=== PATIENT | female | born 1990 | race Two or more races ===

== ENCOUNTER → 2019-09-22 | Outpatient (CLI) | payer OTHER | END | disposition home or self-care (01) | LOC: PRENATAL 12:05 | DX: O35.3XX1 Maternal care for (suspected) damage to fetus from viral disease in mother, fetus 1 (principal); O43.91 Unspecified placental disorder, first trimester ==

== ENCOUNTER → 2019-11-19 | Outpatient (CLI) | payer OTHER | END | disposition home or self-care (01) | LOC: PRENATAL 13:00 | DX: O26.843 Uterine size-date discrepancy, third trimester (principal); O43.93 Unspecified placental disorder, third trimester; Z36.89 Encounter for other specified antenatal screening ==

== ENCOUNTER 2020-01-27 13:30 | Inpatient (IN) | payer OTHER ==
[~2020-01-27] VITALS: Ht 170.2 cm; Wt 82.1 kg
[2020-02-10] MEDS ORDERED: PRENATAL 19 TA1 EACH PO (16:09)
== END 2020-02-13 12:34 | disposition home or self-care (01) | DRG 807 ==
LOC: LDR 02-10 15:06 → OB/GYN 02-11 13:00
PROVIDERS: ADMIT Specialist; ATTEND Specialist
PROC: 3E0P7VZ Introduction of Hormone into Female Reproductive, Via Natural or Artificial Opening (ICD-10-PCS; 2020-02-10)
PROC: 4A1HXCZ Monitoring of Products of Conception, Cardiac Rate, External Approach (ICD-10-PCS; 2020-02-10)
PROC: 10E0XZZ Delivery of Products of Conception, External Approach (ICD-10-PCS; principal; 2020-02-11)
PROC: 0W8NXZZ Division of Female Perineum, External Approach (ICD-10-PCS; 2020-02-11)
PROC: 10907ZC Drainage of Amniotic Fluid, Therapeutic from Products of Conception, Via Natural or Artificial Opening (ICD-10-PCS; 2020-02-11)
PROC: 3E033VJ Introduction of Other Hormone into Peripheral Vein, Percutaneous Approach (ICD-10-PCS; 2020-02-11)
DX: O48.0 Post-term pregnancy (principal); Z37.0 Single live birth; Z3A.40 40 weeks gestation of pregnancy; Z20.828 Contact with and (suspected) exposure to other viral communicable diseases